=== PATIENT | female | born 1985 | race Two or more races ===

== ENCOUNTER 2021-02-05 01:55 | Day surgery (SDC) | payer BC, SELFPAY ==
[2021-01-18 14:36] VITALS: BMI 32.8
--- NOTE | 2021-02-05 08:21 | P.PNAN_ITS ---
Anes - Initial Pre Proc Eval Procedure: Operation Date: 02/05/21 12:30 Proposed Procedures p Colonoscopy - Brady Galicia MD Date/Time: 02/05/21 08:21 Surgeon: Brady Galicia MD Pre Op Diagnosis: change in bowel habits, constipation Patient Data Age: 35 Gender: F Height: 1.6 m Weight: 84 kg Allergies Allergy/AdvReac Type Severity Reaction Status Date / Time No Known Allergies Allergy Verified 02/05/21 11:52 Home Medications Medication Instructions Recorded Confirmed Type norethindrone-e.estradiol-iron 1 tablet PO DAILY 01/18/21 02/05/21 History [Aurovela Fe 1-20 (28)] spironolactone 100 mg PO DAILY 01/18/21 02/05/21 History Patient hx anesthesia problems: none Family hx anesthesia problems: none Results Review: All pre-operative results and documents have been reviewed as part of the pre-operative evaluation. [facility] Past Medical History Medical History (Updated 02/05/21 @ 11:53 by Brady Galicia MD) Chronic GERD Constipation Depression Endometriosis Lower abdominal pain Obesity Social History Social History Smoking status: Never smoker Alcohol intake: current Alcohol use details: 2x monthly Living arrangements: with family Spiritual care concerns: No Anes - Eval Final PreProcedure Day of Procedure 02/05/21 08:21 Patient weight: obese Heart: regular rate and rhythm Lungs: clear to auscultation and normal air movement Airway: Mallampati scale class II Neurological: alert and oriented Last oral intake: >/= 8 hours ASA classification: II Emergent: no Anesthetic plan: proceed Anesthesia type and monitoring: general GIVS Results Review: All pre-operative results and documents have been reviewed as part of the pre-operative evaluation. Informed Consent: The patient's anesthetic plan and its attendant risks and benefits were discussed with the patient/family/POA. Questions were solicited and answers provided to the satisfaction of the patient/family/POA.
--- NOTE | 2021-02-05 11:52 | PM.HPGS ---
History of Present Illness History of Present Illness Consent: Risks, benefits, and alternatives have been discussed and questions answered. Patient agrees to proceed with procedure. Chief complaint: change in bowel habits, constipation Narrative: Lulú Yusuf is a 35 year old female here for constipation and intermittent lower abdominal pain, never had colonoscopy Review of Systems Constitutional: Constitutional: Denies headache(s) and Denies weakness Eyes: Eyes: Denies blurry vision ENT: Reports Normal hearing present, Denies headache(s) and Denies neck pain Cardiovascular: Cardiovascular: Denies chest pain and Denies dyspnea Respiratory: Respiratory: Denies dyspnea Gastrointestinal: Gastrointestinal: Reports no additional gastrointestinal complaints Genitourinary: Genitourinary: Denies dysuria Musculoskeletal: Musculoskeletal: Denies neck pain Integumentary/Breasts: Skin/Breast: Denies dry skin Neurologic: Reports Normal hearing present, Denies headache(s) and Denies weakness Psychiatric: Psychiatric: Denies anxiety Endocrine: Endocrine: Denies change in body appearance Hematologic/Lymphatic: Hematologic/Lymphatic: Denies easy bleeding Allergic/Immunologic: Allergic/Immunologic: Denies urticaria PMFSH Past Medical History Medical History (Updated 02/05/21 @ 11:53 by Brady Galicia MD) Chronic GERD Constipation Depression Endometriosis Lower abdominal pain Obesity Social History Social History Smoking status: Never smoker Alcohol intake: current Alcohol use details: 2x monthly Living arrangements: with family Spiritual care concerns: No Meds Home Medications and Allergies Home Medications Medication Instructions Recorded Confirmed Type norethindrone-e.estradiol-iron 1 tablet PO DAILY 01/18/21 01/18/21 History [Aurovela Fe 1-20 (28)] spironolactone 100 mg PO DAILY 01/18/21 01/18/21 History Allergies Allergy/AdvReac Type Severity Reaction Status Date / Time No Known Allergies Allergy Verified 02/05/21 11:52 Exam Const: General: comfortable and no acute distress HENMT: General nose exam: Normal nares present Eyes: General: appearance normal, both eyes and all related structures Neck: Neck: no JVD Resp: Auscultation: clear to auscultation bilaterally Cardio: Rate: regular rate Rhythm: regular rhythm GI: Inspection: non-distended GI Palp: Yes Soft to palpation Skin: General skin exam: normal color Neuro: General: gait normal Speech: normal speech Extrem: General: normal to inspection Psych: Mental Status: mental status grossly normal Assessment and Plan Assessment and plan (1) Lower abdominal pain: Code(s): R10.30 - Lower abdominal pain, unspecified Status: Acute Assessment and Plan: colonoscopy (2) Constipation: Code(s): K59.00 - Constipation, unspecified Status: Acute
[2021-02-05 11:55] VITALS: BP 129/86; PULSE 92; RESP 16; TEMP 35.7; O2SAT 100; BMI 34.9
[2021-02-05] MEDS: LACTATED RINGERS 1,000 ML 150 ML IV CONT (11:58)
[2021-02-05 12:26] VITALS: BP 101/66; PULSE 82; RESP 23; O2SAT 100
[2021-02-05 12:36] VITALS: BP 98/66; PULSE 73; RESP 17; O2SAT 100
[2021-02-05 12:46] VITALS: BP 102/69; PULSE 70; RESP 18; O2SAT 100
== END 2021-02-05 12:52 | disposition home or self-care (01) ==
PROVIDERS: PCP Emergency Medicine; Visit Provider Internal Medicine Gastroenterology
PROC: 0DJD8ZZ Inspection of Lower Intestinal Tract, Via Natural or Artificial Opening Endoscopic (ICD-10-PCS; CPT 45378; principal; 2021-02-05 12:30)
DX: K59.00 Constipation, unspecified (principal); K64.8 Other hemorrhoids; E66.9 Obesity, unspecified; Z68.34 Body mass index [BMI] 34.0-34.9, adult
CPT/HCPCS: 45378; J2704; J7120

== ENCOUNTER 2021-05-15 13:03 | Outpatient (CLI) | payer BC, SELFPAY ==
--- NOTE | ~2021-05-15 | US_ITS ---
EXAMINATION: US abdomen complete EXAM DATE: 05/15/2021 14:03 INDICATION: Abdominal pain. Constipation. TECHNIQUE: Multiple grayscale and Doppler images of the complete abdomen were obtained (by a technolo gist who performed the scan) and subsequently reviewed. There is no prior study for comparison. FINDINGS: The abdominal aorta is normal in caliber. Visualized portion IVC is patent. The pancreatic head a nd body are normal in appearance. The pancreatic tail is not visualized. The liver has normal echogenicity and contour. There is a 1.2 cm left liver lobe hyperechoic lesion, appearance is characteristic of hemangioma or other benign histology but ultrasound is nonspecific. No other liver lesions identified. There is no evidence of intrahepatic biliary duct dilation. Port al venous flow was seen in the hepatopedal, normal direction and has normal Doppler waveform. Common bile duct measures 4 mm, which is normal. The gallbladder wall is normal in thickness, with ex pected amount of distention. No sonographic evidence of pericholecystic fluid. There is no cholelit hiases. Technologist performing exam reports patient did not demonstrate sonographic Herzog's sign. Please note that this sign is less reliable in patients who have received pain medication. Right kidney: There is normal contour and echogenicity. It measures 10.6 x 4.3 x 6.0 centimeters. There are no focal renal lesions identified. There is no hydronephrosis. Left kidney: There is normal contour and echogenicity. It measures 10.6 x 5.5 x 5.5 centimeters. T here are no focal renal lesions identified. There is no hydronephrosis. The spleen measures 10 centimeters and is morphologically normal. IMPRESSION: Small hyperechoic left liver lobe lesion likely hemangioma or other benign histology give n patient's age and sonographic appearance, however ultrasound is nonspecific. MR abdomen without and with contrast is most specific, but a follow-up six-month ultrasound would also be reasonable to con firm expected stability. Reviewed, dictated and finalized at location B. MOTIVE MECHANIC IMPRESSION: Small hyperechoic left liver lobe lesion likely hemangioma or other benign histology given patient's age and sonographic appearance, however ultra sound is nonspecific. MR abdomen without and with contrast is most specific, bu t a follow-up six-month ultrasound would also be reasonable to confirm expected stability.
--- NOTE | ~2021-05-15 | XR_ITS ---
EXAMINATION: XR UGIAC w barium swallow DATE: 05/15/2021 14:27 INDICATION: Gastroesophageal reflux without esophagitis. Pain after eating. TECHNIQUE: The patient drank thick barium, gas-producing crystals, and thin barium. Fluoroscopy of th e esophagus, stomach, and proximal small bowel was performed. Fluoroscopy exposure time was 0.7 minut es. The total number of images was 530. Total dose-area product was 3.525 Gy-cm^2. COMPARISON: None. FINDINGS: There is no mass or stricture of the esophagus. Esophageal motility is normal. There is no hiatal hernia. There was no gastroesophageal reflux with provocative maneuvers. The stomach and proxi mal small bowel show normal folding patterns. IMPRESSION: 1. Normal upper gastrointestinal series and esophagram. Reviewed, dictated and finalized at location A. [employer]
== END 2021-05-15 13:04 | disposition home or self-care (01) ==
PROVIDERS: PCP Emergency Medicine; Visit Provider Emergency Medicine
DX: K21.9 Gastro-esophageal reflux disease without esophagitis (principal); R10.9 Unspecified abdominal pain; K76.9 Liver disease, unspecified
CPT/HCPCS: 74246; 76700

== ENCOUNTER 2021-07-31 09:32 | Outpatient (CLI) | payer BC, SELFPAY ==
--- NOTE | ~2021-07-31 | NM_ITS ---
EXAM: NM gastric emptying study DATE: 07/31/2021 14:45 INDICATION: Post prandial pain and bloating TECHNIQUE: A gastric emptying study was performed using the methodology of Al SALMERON, et al. J Nucl Med 2007; 48:568-572. The patient was given a meal consisting of 2 scrambled eggs labeled with 0.926 mCi Tc-99m sulfur colloid, 2 slices of toast, two packages of jam, and approximately 120 mL of water . Simultaneous anterior and posterior 1-min images of the abdomen were obtained with the patient supi ne at multiple time points over a total period of 4 hours. The geometric mean of anterior and posteri or views was determined, and the percentage retention was calculated for each time point. COMPARISON: None. FINDINGS: Gastric retention of the radiotracer-labeled meal was 26%, 12%, and 2% at the 1-hour, 2-hour, and 4-h our time points, respectively. With this technique, apparent rapid gastric emptying is suggested by < 30% gastric retention at 1 hour. Delayed gastric emptying is defined by gastric retention of >90% at 1 hour, >60% retention at 2 hours, or >10% retention at 4 hours. IMPRESSION: 1. Rapid gastric emptying. Reviewed, dictated and finalized at location A. IMPRESSION: 1. Rapid gastric emptying.
== END 2021-07-31 09:33 | disposition home or self-care (01) ==
PROVIDERS: PCP Emergency Medicine; Visit Provider Emergency Medicine
DX: R10.9 Unspecified abdominal pain (principal); R14.0 Abdominal distension (gaseous)
CPT/HCPCS: 78264; A9541

== ENCOUNTER 2021-08-27 08:36 | Outpatient (CLI) | payer BC, SELFPAY ==
--- NOTE | ~2021-08-27 | MR_ITS ---
EXAMINATION: MR abdomen wo/w con DATE: 08/27/2021 09:47 INDICATION: Liver disease. Liver mass. TECHNIQUE: Magnetic resonance imaging (MRI) of the abdomen was performed without and with 17 mL Multi Glen intravenous contrast. COMPARISON: Ultrasound abdomen 05/15/2021 FINDINGS: There is a 12 mm mass in left hepatic lobe with delayed enhancement that is unchanged in size from 05/15/2021 when ultrasound demonstrated a hyperechoic mass. There is a 12 mm mass in right hepatic lobe w ith delayed enhancement that was not seen on the prior ultrasound. The gallbladder, spleen, pancreas, adrenal glands, and kidneys are normal. There are no dilated loops of bowel. There are no pathologic ally enlarged lymph nodes. There is no free intraperitoneal fluid. IMPRESSION: 1. Two 12 mm liver masses with delayed enhancement, most likely hemangiomas. Abdomen MRI without and with contrast is recommended in 6 months. Reviewed, dictated and finalized at location B. IMPRESSION: 1. Two 12 mm liver masses with delayed enhancement, most likely hemangiomas. Ab [facility] MRI without and with contrast is recommended in 6 months.
[2021-08-27 09:04] LABS: Estimated Glomerular Filt Rate > 60
== END 2021-08-27 08:37 | disposition home or self-care (01) ==
PROVIDERS: PCP Emergency Medicine; Visit Provider Emergency Medicine
DX: K76.9 Liver disease, unspecified (principal)
CPT/HCPCS: 74183; A9577

== ENCOUNTER 2022-03-22 13:27 | Outpatient (CLI) | payer BC, SELFPAY ==
--- NOTE | ~2022-03-22 | MR_ITS ---
EXAMINATION: MR abdomen wo/w con DATE: 03/22/2022 14:32 INDICATION: Liver masses. Liver disease. TECHNIQUE: Magnetic resonance imaging (MRI) of the abdomen was performed without and with 18 mL Multi Glen intravenous contrast. COMPARISON: Abdomen MRI 08/27/2021 FINDINGS: There are two 12 mm masses in the liver with delayed enhancement. The gallbladder, spleen, pancreas, adrenal glands, and kidneys are normal. There are no pathologically enlarged lymph nodes. There is no free intraperitoneal fluid. IMPRESSION: 1. Two 12 mm liver masses with delayed enhancement, stable from 08/27/21, most likely hemangiomas. Reviewed, dictated and finalized at location A. [employer]GER IMPRESSION: 1. Two 12 mm liver masses with delayed enhancement, stable from 08/27/21, most l ikely hemangiomas.
== END 2022-03-22 13:28 | disposition home or self-care (01) ==
PROVIDERS: PCP Emergency Medicine; Visit Provider Emergency Medicine
DX: K76.9 Liver disease, unspecified (principal); R16.0 Hepatomegaly, not elsewhere classified
CPT/HCPCS: 74183; A9577